=== PATIENT | male | born 1970 | race Caucasian/White ===

== ENCOUNTER → 2022-04-03 15:51 | Outpatient (CLI) | payer BC, SELFPAY ==
--- NOTE | ~2022-04-03 | XR_ITS ---
EXAM: XR knee RT 2V, XR knee LT 2V DATE: 04/03/2022 16:19 HISTORY: M25.561 - Pain in right knee . COMPARISON: None available. FINDINGS: Normal mineralization. No fracture or dislocation. No lytic or blastic lesion. Bilateral m ild medial and lateral joint space narrowing. Bilateral mild tricompartmental osteophytosis. Bilatera l quadriceps insertion enthesopathy. No erosion or periosteal change. Soft tissues within normal limi ts. IMPRESSION: Mild bilateral tricompartmental knee osteoarthritis. Reviewed, dictated and finalized at location K. IMPRESSION: Mild bilateral tricompartmental knee osteoarthritis.
== END ==
PROVIDERS: PCP Family Medicine Adolescent Medicine; Visit Provider Physician Assistant
DX: M17.0 Bilateral primary osteoarthritis of knee (principal)
CPT/HCPCS: 73560